=== PATIENT | female | born 1945 | race Caucasian/White ===

== ENCOUNTER 2016-08-07 19:28 | Emergency (ER) | payer MEDICARE ==
[~2016-08-07] VITALS: Ht 165.1 cm; Wt 63.6 kg
[~2016-08-07 19:28] MED LIST: DIAZ10TA3 PO; META-1 PO
[2016-08-07 19:47] VITALS: BP 146/91; PULSE 73; RESP 16; O2SAT 97
--- NOTE | 2016-08-07 21:16 | ED.REPORT ---
HPI-Back Pain 40 and Over Date of Service Aug 07, 2016 ED Provider: Guzman Martinez MD Patient is a 70 year old female with a history of chronic back pain presenting to the ED complaining of persistent back spasms that began 2 weeks ago. 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 The patient subsequently drove across the country and states that she has experienced ongoing pain since that time. The patient has a history of similar symptoms, for which she has previously been seen in the ED. She reports 3x recent ED visits at other facilities. Patient states that she only received Dilaudid at these facilities, which did not improver her pain. She repots that Morphine is the only thing that helps her pain, as this medication "releases her spasms". Patient is followed by Dr. Gipson and Dr. Ansari, who have prescribed her Dilaudid, Oxycodone, and Prednisone to use when she has an exacerbation. She reports using all of these medications with no relief. She finished her course of Prednisone several days ago. The patient has not had an episode of pain since March of last year, after she started seeing a chiropractor and receiving massages. She denies dysuria or fever. Nursing Notes Stated Complaint: SPASM Chief Complaint: Back Pain or Injury Nursing Notes Reviewed: Yes Allergies: Coded Allergies: iodine (Verified Allergy, Unknown, Shortness of Breath, 04/03/14) General Time Seen by MD: 21:16 Chief Complaint Back pain Hx Obtained From: Patient Arrived By: Walk-in Sudden in Onset?: No Onset Occurred: More than a week ago... (>6 months) Symptom Duration: Waxes and wanes Quality: Painful Severity: Current: Severe Severity: Maximum: Severe Recent Healthcare: Recent doctor visit Similar Sx Previous: Yes Past Medical History Past Medical History Notes: 81mg ASA daily. Past Medical History Chronic back pain exacerbated "yearly." Reports: Hyperlipidemia Past Surgical History Reports: Hysterectomy Smoking History Never Smoker Social History Alcohol Use: "Social" Drug Use: Denies drug use Other Social History: Good social support, Local resident Occupation lives by self Ambulatory Status Independent Review of Systems Constitutional: Denies: Fever Female: Denies: Dysuria, Incontinence Musculoskeletal: Reports: Back pain, Denies: Extremity pain Neurologic: Denies: Numbness, Weakness Complete sys rev & neg: except as marked. Physical Exam Initial Vital Signs Vital Signs (First) Date Time Temp Pulse Resp B/P Pulse Ox O2 Delivery O2 Flow Rate FiO2 08/07/16 19:47 37.7 73 16 146/91 97 Room Air Initial VS: Reviewed, Vital signs abnormal General/Constitutional: Awake, Alert, No acute distress Respiratory / Chest: No respiratory distress, No stridor Cardiovascular: Heart rate NL, Cap refill not delayed Abdomen: Soft, Non-tender Back: Atraumatic, No midline vertebral tend Tender spasms in the right lower thoracic and mid lumbar region, level T10-L2 Neurologic: Oriented X3, Speech NL, No motor deficits, No sensory deficits Neck: Supple, Full range of motion Lower Extremity / Pelvis / MS: Atraumatic Skin: Color NL, Warm, Dry Head / Eyes: Atraumatic, Normocephalic, PERRL, EOMI ENT: Airway patent, Mucous membranes moist Upper Extremity / MS: Atraumatic Psychiatric: Affect NL, Mood NL Re-Eval/Medical Decision Med Decision/Clinical Course 70-year-old female who has a history of recurrent paraspinous back spasm. This happens every couple weeks to couple months. She states that nothing helps with the exception of a single IM shot of narcotic pain medication, preferably morphine. She does not appear to have high pain medication usage otherwise. TIN report was reviewed. She was given Morphine 10 mg IM with complete relief of her discomfort. She understands that this is not a permanent solution. She will follow-up with her primary provider. Source of Hx: Old records Re-Evaluation/Progress #1: Time of Eval: 21:57 Re-Evaluation/Progress Note: Rechecked patient. Discussed plan for treatment. The patient understands and agrees to the plan. Re-Evaluation/Progress #2: Time of Eval: 22:30 Patient Status: Condition improved Re-Evaluation/Progress Note: Rechecked patient whose condition has improved. Discussed plan for discharge. The patient understands and agrees to the plan for discharge. All questions were addressed. Counseled Regarding: Diagnosis, Need for follow-up, When/why to return to ED Discharge & Departure Impression: Primary Impression: Spasm of paraspinal muscle Disposition: Home Discharge Condition All VS Reviewed: Yes Condition: Stable Patient Instructions: Low Back Strain (ED) Additional Instructions: You given morphine 10 mg IM here in the emergency room with good relief of your pain. Resume your regular medications. Follow-up with your regular doctor. Referrals: Cat Gipson MD (PCP) Scribe Attestation Portions of this note were transcribed by Haydee Pan and Paulette Hurst. I, Dr. Martinez personally performed the history, physical exam and medical decision-making; I reviewed and confirmed the accuracy of the information in the transcribed note. Signed by: Haydee Pan and Paulette Hurst, [place], 08/07/16 and 2317. copies to: Cat Gipson MD, Howard L MD Aug 07, 2016 21:16 Myranda Pan Aug 07, 2016 21:30 Paulette Hurst Aug 07, 2016 23:07
== END 2016-08-07 22:46 | disposition home or self-care (01) ==
LOC: SED 19:28
DX: M62.838 Other muscle spasm (principal); X50.3XXA Overexertion from repetitive movements, initial encounter; Y93.89 Activity, other specified; Y92.9 Unspecified place or not applicable; Y99.8 Other external cause status; E78.5 Hyperlipidemia, unspecified
CPT/HCPCS: 96372; 99283; J2270